=== PATIENT | female | born 1990 | race Caucasian/White ===

== ENCOUNTER 2020-08-02 08:41 | Emergency (ER) | payer OTHER ==
[~2020-08-02] VITALS: Ht 162.6 cm; Wt 52.2 kg
[2020-08-02] MEDS ORDERED: NAPROSYN500 MG PO (10:11)
[2020-08-02] MEDS ORDERED: NORCO5 PO (10:11)
[2020-08-02 11:04] VITALS: BP 140/97
== END 2020-08-02 11:04 | disposition home or self-care (01) ==
LOC: ER 08:41
DX: S52.602A Unspecified fracture of lower end of left ulna, initial encounter for closed fracture (principal); S52.502A Unspecified fracture of the lower end of left radius, initial encounter for closed fracture; W22.8XXA Striking against or struck by other objects, initial encounter; Y93.89 Activity, other specified; Y92.89 Other specified places as the place of occurrence of the external cause; Y99.8 Other external cause status